=== PATIENT | female | born 1980 | race Caucasian/White ===

== ENCOUNTER → 2017-10-05 11:10 | Outpatient (CLI) | payer BC, SELFPAY ==
[2017-10-05 12:27] LABS: Hematocrit 34.5 % (37-47); Hemoglobin 11.7 g/dl (12.0-15.0); Mean Corp Hgb Conc 33.9 g/gl (32-36); Mean Corpuscular Hgb 32.2 pg (27.0-32.0); Mean Platelet Vol. 10.5 fl (6.2-12.0); Platelet Count 225 K/mm3 (150-450); RBC Distribution Width CV 12.7 % (11.6-14.6); RBC Distribution Width SD 43.9 fl (35.1-43.9); Red Blood Count 3.63 M/mm3 (4.2-5.4); White Blood Count 10.6 K/mm3 (4.4-11.0)
[2017-10-05 12:29] LABS: Scan Indicated on CBC? Y/N NO
[2017-10-05 12:30] LABS: Glucose Challenge Gest 1H 50g 148 mg/dL (70-140)
== END ==
PROVIDERS: Family Provider Family Medicine; PCP Family Medicine; Visit Provider Obstetrics & Gynecology
DX: Z34.83 Encounter for supervision of other normal pregnancy, third trimester (principal)
CPT/HCPCS: 82950; 85027

== ENCOUNTER → 2017-10-10 06:47 | Outpatient (CLI) | payer BC, SELFPAY ==
[2017-10-10 08:07] LABS: Glucose GTT-Gestation. Fasting 77 mg/dL (<105)
[2017-10-10 09:07] LABS: Glucose GTT-Gestational 1 Hr 118 mg/dL (<190)
[2017-10-10 11:12] LABS: Glucose GTT-Gestational 3 Hr 62 L (<145)
[2017-10-10 11:22] LABS: Glucose GTT-Gestational 2 Hr 71 mg/dL (<165)
== END ==
PROVIDERS: Family Provider Family Medicine; PCP Family Medicine; Visit Provider Obstetrics & Gynecology
DX: R73.02 Impaired glucose tolerance (oral) (principal)
CPT/HCPCS: 36415; 82951; 82952

== ENCOUNTER → 2017-11-24 14:07 | Outpatient (CLI) | payer BC, SELFPAY ==
[2017-11-24 17:33] LABS: Group B Strep DNA By PCR POSITIVE (Negative); Probe Check PASS
== END ==
PROVIDERS: Visit Provider Obstetrics & Gynecology
DX: Z34.83 Encounter for supervision of other normal pregnancy, third trimester (principal)
CPT/HCPCS: 87653

== ENCOUNTER 2017-12-27 02:08 | Inpatient (IN) | payer BC, SELFPAY ==
[2017-12-27 00:35] VITALS: BMI 36.1
[2017-12-27] MEDS: Lactated Ringers 1,000 ML 50 ML IV ×4 (02:30→10:16)
[2017-12-27 02:43] LABS: Hematocrit 37.6 % (37-47); Hemoglobin 13.1 g/dl (12.0-15.0); Mean Corp Hgb Conc 34.8 g/gl (32-36); Mean Corpuscular Hgb 32.1 pg (27.0-32.0); Mean Corpuscular Volume 92.2 fL (81-99); Mean Platelet Vol. 11.1 fl (6.2-12.0); Platelet Count 222 K/mm3 (150-450); RBC Distribution Width SD 43.5 fl (35.1-43.9); Red Blood Count 4.08 M/mm3 (4.2-5.4); Scan Indicated on CBC? Y/N NO; White Blood Count 14.1 K/mm3 (4.4-11.0)
[2017-12-27] MEDS: Clindamycin 900 MG/50 ML BAG 75 MG IV ×2 (03:09→10:54)
[2017-12-27] MEDS: Mag Hydrox/Al Hydrox/Simeth 30 ML UDC PO (03:31)
[2017-12-27] MEDS: fentaNYL-bupivacaine (epidural) 100 ML BAG EPIDURAL ×2 (03:35→07:20)
[2017-12-27] MEDS: Ondansetron 4 MG/2 ML Vial IV (04:25)
[2017-12-27] MEDS: Oxytocin 30 units/NS 500 ml 30 UNITS/500 ML IV.SOLN 334 UNITS IV (11:25)
[2017-12-27] MEDS: Methylergonovine 0.2 MG/ML Ampul IM (11:30)
--- NOTE | 2017-12-27 11:36 | PCM.NY.DEL ---
Delivery Attendance Service Date: 12/27/17 Service Time: 11:24 Asked to attend delivery by: OB, Nursing Reason for attendance: Meconium Assessment: - - Term Plan: Return to Mother - Course of Delivery Was resuscitation required: No Interventions at Delivery: Bulb Suction - Physical Exam Apgars/Vital Signs/Weight: Weight: 104.8 kg General: Alert, Active, Strong cry Head: Normocephalic Lungs: Clear to auscultation, No retractions Cardiovascular: Regular rate and rhythm Genitalia, Male: Penis normal Skin: Normal color
[2017-12-27] MEDS: Oxytocin 30 units/NS 500 ml 30 UNITS/500 ML IV.SOLN 167 UNITS IV (11:55)
--- NOTE | 2017-12-27 12:46 | PCM.OB.VAG ---
Vaginal Delivery Maternal Presentation: Active Labor 40 3/7 wk EGA labor. Medical Reason for Induction: Compromise: list: Amniotic Membrane Rupture Type: Artificial Amniotic Fluid Description: Moderate meconium Final GEOFF: 12/24/17 Gestational age: 40 Weeks and 3 Days doctor who attended delivery (if requested by OB): Ander Castano Date of Procedure: 12/27/17 Pre-Operative Diagnosis: 40 3/7 wk Post-Operative Diagnosis: same Surgery/ Procedure Performed: Spontaneous Vaginal Delivery Type of Anesthesia: Epidural Description of Procedure: Epidural in place. Hopper catheter in place. IUPC and scalp lead in place of a moran viable male over intact perineum. Head delivered JOON. No nuchal cord. shoulders delivered easily with R hand at chin. Baby to maternal abdomen with spontaneous cry. Dr Castano present for delivery due to meconium stained fluid. Delayed cord clamping, then cut. Ap 8/9 PP exam: 1st posterior vaginal laceration noted , no repair required. No other lacerations. Placenta delivered by spont expulsion, expression. 3V cord, normal appearing intact with trailing membranes EGL 250 cc pt and infant tolerated delivery well. To recovery , stable condition. Ray Saumya counts correct times two. Presentation: Vertex, JOON Placental Delivery Description: Spontaneous, Expressed Placenta Disposition: [facility] Cord Vessel Description: 3 Vessels Nuchal Cord Compression: Without compression Cord Entanglement: None Drain: Hopper to straight drain Estimated Blood Loss: 250 A gender: Male (1 minute): 8 (5 minute): 9 Episiotomy Description: None Laceration: Midline, Vaginal Extension/lac - hemostatic, no repair required, 1st degree Medications given after delivery: IV Pitocin Complications: None
--- NOTE | 2017-12-27 12:58 | PCM.DCVAG ---
Discharge Diet: No Restrictions Discharge Activity: May Shower, May Take a Tub Bath May resume sexual activity in: 4-6 weeks Additional Activity Instructions:: Nothing in the vagina for 4-6 weeks. You may return to work/school in 6 weeks. Additional Instructions: If you experience any of the following, contact your healthcare provider. Bleeding that soaks a pad every hour for 2 hours Fever 100.4 or higher Unrelieved abdominal pain Problems urinating (including inability to urinate or burning while urinating). Visual changes Severe headache Flu-like symptoms Pain or redness in one of both of your breasts Pain, warmth, tenderness or swelling in your legs, especially the calf area Frequent nausea and vomiting Symptoms of depression or anxiety If you experience any of the following, call 911 or go to the nearest Emergency Room. Chest pain Problems breathing Seizure activity Partial or complete paralysis of a body part, slurred speech, weakness or drooping of the face, or a sudden inability to walk or hold your balance Allergies/Adverse Reactions: Allergies Penicillins Allergy (Verified 12/27/17 00:26) Rash Medications to take at Discharge Vits [Prenatabs FA] 1 tablet PO DAILY 12/27/17 Please Follow Up With: Juliette Bright MD - [phone] When: Call to make an appointment with your doctor in 6 weeks. Primary Care Physician: Rasta Mario MD [Primary Care Provider] - Proposed Discharge Date: 12/29/17
--- NOTE | 2017-12-27 13:00 | DCINST_ITS ---
Discharge Diet: No Restrictions Discharge Activity: May Shower, May Take a Tub Bath May resume sexual activity in: 4-6 weeks Additional Activity Instructions:: Nothing in the vagina for 4-6 weeks. You may return to work/school in 6 weeks. Additional Instructions: If you experience any of the following, contact your healthcare provider. * Bleeding that soaks a pad every hour for 2 hours * Fever 100.4 or higher * Unrelieved abdominal pain * Problems urinating (including inability to urinate or burning while urinating) . * Visual changes * Severe headache * Flu-like symptoms * Pain or redness in one of both of your breasts * Pain, warmth, tenderness or swelling in your legs, especially the calf area * Frequent nausea and vomiting * Symptoms of depression or anxiety If you experience any of the following, call 911 or go to the nearest Emergency Room. * Chest pain * Problems breathing * Seizure activity * Partial or complete paralysis of a body part, slurred speech, weakness or drooping of the face, or a sudden inability to walk or hold your balance Allergies/Adverse Reactions: Allergies Penicillins Allergy (Verified 12/27/17 00:26) Rash Medications to take at Discharge Vits [Prenatabs FA] 1 tablet PO DAILY 12/27/17 Please Follow Up With: Juliette Bright MD - [phone] When: Call to make an appointment with your doctor in 6 weeks. Primary Care Physician: Rasta Mario MD [Primary Care Provider] - Proposed Discharge Date: 12/29/17
[2017-12-27] MEDS: Acetaminophen 500 MG Tablet 1000 MG PO (14:38)
[2017-12-27 16:00] VITALS: BP 117/67; PULSE 72; RESP 16; TEMP 36.8
[2017-12-27] MEDS: Ibuprofen 600 MG Tablet PO (17:11)
[2017-12-27 19:40] VITALS: BP 120/62; PULSE 67; RESP 16; TEMP 36.6; O2SAT 98
[2017-12-28] VITALS: BP 119/60; PULSE 65; RESP 16; TEMP 36.3
[2017-12-28] MEDS: Ibuprofen 600 MG Tablet PO (05:07)
[2017-12-28 05:13] VITALS: BP 111/72; PULSE 57; RESP 16; TEMP 36.8
[2017-12-28] MEDS: Acetaminophen 500 MG Tablet 1000 MG PO (06:52)
[2017-12-28 07:32] VITALS: BP 108/71; PULSE 64; RESP 18; TEMP 37
--- NOTE | 2017-12-28 08:32 | PCM.PN.OB ---
Subjective: PPD#1 doing OK. Some cramping in lower abdomen and taking tylenol, ibuprofen prn for this and using K pad. Pumping with pump at bedside. Baby transported to [facility] yesterday d/t meconium aspiration syndrome. Pt states he is intubated and medicated now for his lungs. Would like to go home today. RX for pain requested and will send to local pharmacy - Physical Exam General: Alert, Oriented x3, Cooperative, No apparent distress HEENT: Atraumatic Neck: Supple Abdomen: Soft, Non Tender - K pad over lower abdomen. Fundus firm NT at umbilicus Psych/Mental Status: Normal Affect Vital Signs Temp Pulse Resp BP Pulse Ox 98.3 F 57 L 16 111/72 98 12/28/17 05:13 12/28/17 05:13 12/28/17 05:13 12/28/17 05:13 12/27/17 19:40 Oxygen Delivery Method Room Air Weight: 104.8 kg Body Mass Index (BMI) 36.1 Intake and Output for Last 24 Hours 12/26/17 12/27/17 12/28/17 23:59 23:59 23:59 Intake Total 2618 / 2618 Output Total 700 / 700 400 / 400 Balance 8 / 1917 -400 / -400 Medical Necessity - Tobacco Use Smoking Status: Former smoker Assessment/Plan PPD#1 Stable pp. dischg home today. Baby at [facility] for Meconcium Aspiration. RTO in 6 wk to office for pp check, prn sooner.
--- NOTE | 2017-12-28 08:35 | PN.OBGYN_ITS ---
Subjective: PPD#1 doing OK. Some cramping in lower abdomen and taking tylenol, ibuprofen prn for this and using K pad. Pumping with pump at bedside. Baby transported to [facility] yesterday d/t meconium aspiration syndrome. Pt states he is intubated and medicated now for his lungs. Would like to go home today. RX for pain requested and will send to local pharmacy - Physical Exam General: Alert, Oriented x3, Cooperative, No apparent distress HEENT: Atraumatic Neck: Supple Abdomen: Soft, Non Tender - K pad over lower abdomen. Fundus firm NT at umbilicus Psych/Mental Status: Normal Affect Vital Signs Temp Pulse Resp BP Pulse Ox 98.3 F 57 L 16 111/72 98 12/28/17 05:13 12/28/17 05:13 12/28/17 05:13 12/28/17 05:13 12/27/17 19:40 Oxygen Delivery Method Room Air Weight: 104.8 kg Body Mass Index (BMI) 36.1 Intake and Output for Last 24 Hours 12/26/17 12/27/17 12/28/17 23:59 23:59 23:59 Intake Total 2618 / 2618 Output Total 700 / 700 400 / 400 Balance 8 / 1917 -400 / -400 Medical Necessity - Tobacco Use Smoking Status: Former smoker Assessment/Plan PPD#1 Stable pp. dischg home today. Baby at [facility] for Meconcium Aspiration. RTO in 6 wk to office for pp check, prn sooner.
[2017-12-28 09:06] VITALS: BP 108/71; PULSE 64; RESP 18; TEMP 37
--- NOTE | 2017-12-28 09:30 | CASEMGMT ---
Social Work Brief Assessment Labor and Delivery Unit Date of Referral/Notification: 12/28/2017 Time of Referral: 829 Referred By: nursing staff Reason for Referral: emotional support Date of Intervention: 12/28/2017 Time of Intervention: 929 Informant: Medical record and mother of baby (MOB) History: MOB is Janet Love, age 37, to father of baby (FOB) [place]. MOB reports has been with FOB for 13 years. was unexpected, but also wanted and accepted. MOB is G1, P0 to 1 after delivery of , Cornel. born with Apgars of 8 and 9. Infant, soon after , was transferred to [facility] for some respiratory distress issues. MOB reports to have stable housing, to live with FOB, and no safety issues in the home. MOB reports to have needed supplies for baby, to have transportation, and to have adequate support from family and friends in the area. MOB reports primary practical supports would be FOB and MOBs mother, and then emotional support FOB. MOB denies any mental health history, though care record does indicate MOB with some anxiety about . MOB reports worry was mostly about the baby, and concern for the baby. MOB reports perception that overall, this , and even the delivery were both very easy experiences, no major stressors or life changes other than getting ready for parenthood after so long together as a couple without children. No reports of any drug and alcohol issues. MOB and FOB are both college educated, no learning or comprehension issues, and both gainfully employed. Assessment: MOB held good eye contact, affect constricted, teary eyed intermittently, anxious mood as evidenced by expressed worry/concern about baby. MOB able to stay focused on conversation at hand, speech and motor activity within normal limits. MOB admits day of was difficult, that MOB did get to do about an hour of skin to skin with the baby, before nursing realized something was not right with the babys responses. MOB reports did go into the [facility] to see the baby, but this was hard and discussed with this film writer was parts that were the hardest for MOB. MOB admits that at the time was not really taking in and retaining what the doctor was saying, as this was a stressful time for MOB. MOB also reports it was hard when the decision was made to transfer the baby to main [facility] at [place], though MOB states knowledge that baby is where needs to be and that FOB has been with baby since transfer. MOB reports FOB has been giving MOB regular updates. This film writer listened to MOBs and experience from MOBs perspective, normalizing MOBs thoughts and feelings experienced. Supportive listening offered. Educated MOB to depression and anxiety, risk factors for such, and importance of MOB taking care of self in the period. Reinforced importance of letting others know if symptoms arise, and seeking out support. Discussed that right now this is a stressful time, may have ups and downs in thoughts and emotions, so important for self-care even during this time. Encouraged MOB to write down questions that has for the babys medical team, to help MOB with keeping focused and getting questions answered. MOB voiced appreciation for social service worker talking with MOB today. As far as being prepared for baby, MOB reports will have support at home going and to have essential baby supplies at home already. Intervention: Emotional support and supportive listening offered. Provided MOB with packet on depression, signs/symptoms, and common facts about depression anxiety, local resources for support, and online resources for support. Provided a handout on Help Me grow, educating to this services and let MOB know that the social service worker at [place] may talk with MOB and FOB further. Plan: MOB discharging today, with plan for MOBs mother to transport MOB to [place] to see the baby. MOB agreeable to have a face to face (computer based) phone conference with Radha Summers if MOB is still in the hospital at time of planned conference time for this baby. No further needs requested or indicated. -JOHANNA Mason, TECHNICAL CONSULTANT
--- NOTE | 2017-12-28 10:49 | NURSING ---
Pt talked with Jocelyn, director social service, since pt admitted to being shocked from seeing in that condition after delivery. Pt continues to have difficulty focussing on teaching and filling out infant's certificate. RN reinforced this am that [employer] Booklet has all the teaching that we go over here at the hospital. Pt was agreeable to facetime during 's care at 1030 this am but then FOB called crying and distressed prior to that that infant's condition had worsened and pt would like to leave immediately with her mother to drive to [facility] to be with and FOB. Belongings packed quickly, written/verbal d/c instructions given by RN, certificate reviewed prior to d/c but complimentary footprint certificate not given at this time. Pt transported via w/c and all belongings transported to ride with pt's mother. No further questions noted prior to d/c but encouraged pt to keep our unit updated on 's progress.
--- NOTE | 2017-12-30 13:48 | CASEMGMT ---
Social Work Labor and Delivery Unit Handoff report to social science research assistant Jessica Whiteside at [facility] (where was transferred to). No other services requested or indicated. -DALY Mason, PEDIATRIC DENTAL ASSISTANT
== END 2017-12-28 10:16 | disposition home or self-care (01) | DRG 774 ==
LOC: WPOUT 02:09
PROVIDERS: Admitting Provider Obstetrics & Gynecology; Family Provider Family Medicine; PCP Family Medicine; Visit Provider Obstetrics & Gynecology
DX: O71.4 Obstetric high vaginal laceration alone (principal); O98.82 Other maternal infectious and parasitic diseases complicating childbirth; O77.0 Labor and delivery complicated by meconium in amniotic fluid; B95.1 Streptococcus, group B, as the cause of diseases classified elsewhere; Z3A.40 40 weeks gestation of pregnancy; Z37.0 Single live birth; Z87.891 Personal history of nicotine dependence
CPT/HCPCS: 59025; 59050; 85027; 86850; 86900; 99218; J7120; G0378; J2405

== ENCOUNTER 2020-05-13 11:08 | Emergency (ER) | payer BC, SELFPAY ==
[2019-07-12 08:20] VITALS: BMI 36.1
[2020-05-13 11:09] VITALS: BP 146/85; PULSE 69; RESP 20; TEMP 36.2; O2SAT 99; BMI 40.8
--- NOTE | 2020-05-13 11:30 | EKG12_ITS ---
Test Reason : CP Blood Pressure : / mmHG Vent. Rate : 060 BPM Atrial Rate : 060 BPM P-R Int : 168 ms QRS Dur : 084 ms QT Int : 426 ms P-R-T Axes : -06 021 038 degrees QTc Int : 426 ms Normal sinus rhythm Normal ECG Confirmed by YONAS DÍAZ, JACQUELIN ([id number]), editor department DESTINEY SKINNER ([id number]) on 05/14/2020 9:38:56 AM Referred By: Confirmed By:JACQUELIN BRANHAM MD
--- NOTE | 2020-05-13 11:32 | ED.DCSUM_ITS ---
- ER Visit Summary Date of Service: 05/13/20 Chief Complaint: Chest pain History of Present Illness: The patient is a 39 F who presents with chest pain that began today while she was at work. Patient states the pain began as a sharp pain but is now a dull ache. Patient states the pain is over the lower vasquez bsternal and epigastric area. Patient states nothing makes it better or worse. Patient admits to some lightheadedness. Patient denies any nausea or vomiting. Patient denies any diaphoresis. Patient denies any shortness of breath or cough. Patient denies any fever or palpitations. Physical Examination: Vital signs are stable. Patient is afebrile. Patient is in no acute distress. Oral mucosa is pink and moist. Neck is supple. Trachea is midline. There is no JVD noted. Heart was regular rate and rhythm. Lungs are clear and equal bilaterally. Abdomen is soft. Bowel sounds are normal. There is no tenderness. There is no rebound or guarding noted. Skin is warm dry. Cranial nerves II through XII are intact. There are no focal motor or sensory deficits noted. Extremities are intact. There is no calf tenderness or edema. Test Results: EKG shows a normal sinus rhythm with a rate of 60. There are no acute ST or T wave changes. CBC and basic metabolic profile were within normal limits. Troponin was normal. Portable chest x-ray was obtained. There is no acute cardiopulmonary process. This was interpreted by the radiologist and reviewed by myself. Emergency Department Course and Treatment: Patient was given baby aspirin here. Patient was given 1 sublingual nitroglycerin tablet with no change in her pain. Patient was given a GI cocktail. Patient has a HEART score of 1. Patient was advised that this is low risk for acute cardiac event. Patient was instructed to follow-up with her primary care physician in 3 to 5 days. Patient understood and was agreeable with the plan. All questions were answered. Disposition: Discharge home Impression: 1. Chest pain of uncertain etiology This note was generated with [employer] dictation software. It may contain incorrect words, spelling, and punctuation that were not noted in review of the chart prior to signing ED Disposition - Plan for ED Patient: Disposition: Home or Assisted Living Diagnosis: Chest pain of uncertain etiology Instructions: ED Chest Pain Atypical Unkn Cause Referrals: Rasta Mario MD [Primary Care Provider] - 3-5 Days
[2020-05-13] MEDS: Aspirin 81 MG TAB.CHEW 324 MG PO (11:38)
--- NOTE | 2020-05-13 11:45 | RAD_ITS ---
STUDY: X-RAY CHEST REASON FOR EXAM: Female, 39 years old. Chest pain TECHNIQUE: AP upright portable view. COMPARISON: None. FINDINGS: The lungs are clear and expanded. There is no demonstrated pleural abnormality. Normal size heart. Normal mediastinum and mikki. Normal visualized pulmonary arteries. Normal visualized aortic arch and descending thoracic aorta. Normal visualized thoracic spine. Normal visualized ribs, clavicles, and shoulders. There is no demonstrated abnormality of the visualized soft tissue structures of the upper abdomen. RAD/Chest 1 View (Portable) IMPRESSION: Normal x-ray examination of the chest. Electronically Signed: Emilio Woods MD at 12:13 EDT , Service support ,
[2020-05-13 11:46] VITALS: BP 127/79; PULSE 64
[2020-05-13] MEDS: Nitroglycerin SL (ED/IMG/CATH) 0.4 MG TABLET SUBLINGUAL (11:46)
[2020-05-13 11:50] LABS: Absolute Lymphocyte Count 3.26 X10^3/uL (0.83-4.51); Absolute Neutrophil Count 5.4 X10^3/uL (2.0-7.7); Basophil# 0.08 X10^3/uL; Basophil% 0.8 % (0-1); Eosinophil# 0.19 X10^3/uL; Lymphocyte # 3.26 X10^3/ul (4.0); Lymphocyte % 34.4 % (19-41); Mean Corp Hgb Conc 32.5 g/dL (32-36); Mean Corpuscular Hgb 30.4 pg (27.0-32.0); Mean Corpuscular Volume 93.5 fL (81-99); Mean Platelet Vol. 10.1 fl (6.2-12.0); Monocyte# 0.56 X10^3/uL; Monocyte% 5.9 % (0-10); NRBC Flagged by Analyzer 0 % (0-5); Neutrophil # 5.36 X10^3/uL (2.7-7.7); Neutrophil % 56.6 % (47-70); Platelet Count 354 K/mm3 (150-450); RBC Distribution Width CV 12.2 % (11.6-14.6); RBC Distribution Width SD 41.6 fl (35.1-43.9); Red Blood Count 4.28 M/mm3 (4.2-5.4); White Blood Count 9.5 K/mm3 (4.4-11.0)
[2020-05-13 12:02] LABS: Anion Gap 5 (5-15); BUN 10 mg/dL (7-18); BUN/Creat Ratio 9.3 RATIO (10-20); Calcium,Total 8.8 mg/dL (8.5-10.1); Chloride 107 mmol/L (98-107); Creatinine, Serum 1.08 mg/dL (0.55-1.02); EST Glomerular Filtration Rate 60 mL/min (>60); Est Glom Filt Rate - Afr Amer 72 mL/min (>60); Estimated Creatinine Clearance 67.34 ml/min; Glucose 88 mg/dL (74-106); Potassium 3.3 mmol/L (3.5-5.1); Sodium Level 140 mmol/L (136-145)
[2020-05-13] MEDS: Mag Hydrox/Al Hydrox/Simeth 30 ML UDC PO (12:41)
[2020-05-13 12:44] VITALS: BP 120/82; PULSE 58; RESP 14; O2SAT 97
== END 2020-05-13 12:44 | disposition home or self-care (01) ==
PROVIDERS: Emergency Provider Emergency Medicine; PCP Family Medicine
DX: R07.9 Chest pain, unspecified (principal)
CPT/HCPCS: 71045; 80048; 84484; 85025; 93005; 99285; A4216

== ENCOUNTER → 2020-06-02 16:00 | Outpatient (CLI) | payer BC, SELFPAY ==
[2020-06-02 15:46] VITALS: BMI 40.7
[2020-06-06 15:26] LABS: HPV APTIMA, High Risk Negative (Negative)
== END ==
PROVIDERS: PCP Family Medicine; Referring Provider Obstetrics & Gynecology; Visit Provider Obstetrics & Gynecology
DX: Z12.4 Encounter for screening for malignant neoplasm of cervix (principal)
CPT/HCPCS: 87624; 88175; G0145

== ENCOUNTER 2021-08-13 16:18 | Outpatient (CLI) | payer BC, SELFPAY ==
--- NOTE | 2021-08-13 16:20 | BI_ITS ---
MAMMOGRAPHY - BILATERAL SCREENING REASON FOR EXAM: Female, 40 years old. Routine annual screening examination. PERTINENT HISTORY: Aunt with breast cancer. Remote bilateral breast reduction surgery. TECHNIQUE: Digital bilateral breast maria luisa (3D mammographic acquisition) in the CC and MLO projections. 2-D mediolateral oblique (MLO) and craniocaudad (CC) views of both breasts were obtained. CAD: Full Field Digital Mammography with Computer Added Detection was performed. COMPARISON: Comparison is made with prior examination dated 09/29/2015 and 04/09/2014. FINDINGS: Breast Composition: There are scattered areas of fibroglandular density. There are no dominant masses or suspicious calcifications. Stable postsurgical changes from prior breast reduction surgery. Stable calcified 8.6 mm nodule in the upper medial anterior portion of the right breast No other significant abnormalities are identified. There has been no significant change since the prior study. BI/SCRN MAMM (CAD)W/MARIA LUISA BILAT IMPRESSION: Stable bilateral screening mammogram. Yearly follow-up mammogram recommended. (A) ASSESSMENT CATEGORY: BIRADS Category 2: Benign. A letter regarding these results will be sent to the patient by the facility within 30 days. Approximately 10% of breast cancers are not detected by mammography. A normal mammogram should not delay biopsy of a clinically suspicious abnormality. [id number] Electronically Signed: Iron Jacob MD at 8:08 EST , Service support ,
== END 2021-08-13 23:59 | disposition short-term general hospital (02) ==
LOC: OPBI 16:19
PROVIDERS: PCP Family Medicine; Visit Provider Obstetrics & Gynecology
DX: Z12.31 Encounter for screening mammogram for malignant neoplasm of breast (principal)
CPT/HCPCS: 77063; 77067

== ENCOUNTER → 2022-08-24 | Outpatient (CLI) | payer BC, SELFPAY | END | disposition home or self-care (01) | LOC: LABSPEC 10:01 | PROVIDERS: PCP Family Medicine; Visit Provider Family Medicine | DX: R19.7 Diarrhea, unspecified (principal) | CPT/HCPCS: 87493; 87506 ==

== ENCOUNTER → 2022-08-31 | Outpatient (CLI) | payer BC, SELFPAY ==
[2022-08-31 12:21] LABS: Absolute Lymphocyte Count 2.15 X10^3/uL (0.83-4.51); Absolute Neutrophil Count 4.1 X10^3/uL (2.0-7.7); Basophil# 0.09 X10^3/uL; Basophil% 1.3 % (0-1); Eosinophil# 0.17 X10^3/uL; Eosinophils% 2.4 % (0-5); Hematocrit 38.4 % (37-47); Lymphocyte # 2.15 X10^3/ul (0.83-4.51); Lymphocyte % 30.9 % (19-41); Mean Corp Hgb Conc 33.9 g/dL (32-36); Mean Corpuscular Hgb 31.2 pg (27.0-32.0); Mean Corpuscular Volume 92.1 fL (81-99); Mean Platelet Vol. 10.3 fl (6.2-12.0); Monocyte# 0.43 X10^3/uL; Monocyte% 6.2 % (0-10); NRBC Flagged by Analyzer 0 % (0-5); Neutrophil % 58.9 % (47-70); Platelet Count 336 K/mm3 (150-450); RBC Distribution Width CV 12.3 % (11.6-14.6); RBC Distribution Width SD 41.2 fl (35.1-43.9); Red Blood Count 4.17 M/mm3 (4.2-5.4)
[2022-08-31 12:32] LABS: Erythrocyte Sedimentation Rate 5 mm/hr (0-30)
[2022-08-31 13:07] LABS: ALB/GLOB Ratio 1.1 RATIO (0.9-2.4); AST(SGOT) 42 U/L (15-37); Alanine Aminotransfer ALT/SGPT 52 U/L (13-56); Albumin, Serum 4.2 g/dL (3.2-5.0); Alkaline Phosphatase 59 U/L (45-117); Anion Gap 7 (5-15); BUN 9 mg/dL (7-18); BUN/Creat Ratio 7.8 RATIO (10-20); CRP < 2.90 mg/L (0.0-3.0); Calcium,Total 9.1 mg/dL (8.5-10.1); Chloride 107 mmol/L (98-107); Creatinine, Serum 1.15 mg/dL (0.55-1.02); EST Glomerular Filtration Rate 55 mL/min (>60); Est Glom Filt Rate - Afr Amer 66 mL/min (>60); Free T3 2.4 pg/mL (2.18-3.98); Globulin 3.9 g/dL (2.2-4.2); Glucose 91 mg/dL (74-106); LDH 223 U/L (84-246); Potassium 3.6 mmol/L (3.5-5.1); Protein, Total 8.1 g/dL (6.4-8.2); Sodium Level 140 mmol/L (136-145); T4 Total, Thyroxin 8.7 ug/dL (4.8-13.9)
[2022-09-01 16:09] LABS: Endomysial Antibody IgA Negative (Negative)
[2022-09-01 16:26] LABS: Immunoglobulin A 241 mg/dL (87-352); t-Transglutaminase IgA 2 U/mL (0-3)
[2022-09-03 15:08] LABS: Albumin 3.7 g/dL (2.9-4.4); Alpha-1-Globulins 0.3 g/dL (0.0-0.4); Alpha-2-Globulins 0.7 g/dL (0.4-1.0); Cytoplasmic Ab (C-ANCA) <1:20 titer (Neg:<1:20); Gamma Globulin 1.4 g/dL (0.4-1.8); Immunoglobulin A 259 mg/dL (87-352); Immunoglobulin E < 2 IU/mL (6-495); Immunoglobulin G 1309 mg/dL (586-1602); Immunoglobulin M 128 mg/dL (26-217); PROEL- TOTAL PROTEIN 7.3 g/dL (6.0-8.5)
[2022-09-03 16:14] LABS: Perinuclear Ab (P-ANCA) <1:20 titer (Neg:<1:20)
[2022-09-03 19:07] LABS: Anti-Centromere B Ab <0.2 AI (0.0-0.9); Anti-Chromatin <0.2 AI (0.0-0.9); Anti-Jo <0.2 AI (0.0-0.9); Anti-Scleroderma-70 AB <0.2 AI (0.0-0.9); Beef <0.10 kU/L (Class 0); Corn <0.10 kU/L (Class 0); Egg, Whole <0.10 kU/L (Class 0); Milk (Cow) <0.10 kU/L (Class 0); Peanut <0.10 kU/L (Class 0); Pork <0.10 kU/L (Class 0); RNP Ab <0.2 AI (0.0-0.9); SJOGREN'S Anti-SS-A test < 0.2 AI (0.0-0.9); SJOGREN'S Anti-SS-B test < 0.2 AI (0.0-0.9); Smith Ab <0.2 AI (0.0-0.9); Soybean <0.10 kU/L (Class 0); Wheat <0.10 kU/L (Class 0)
[2022-09-04 14:00] LABS: Anti-dsDNA Ab <1 IU/mL (0-9); Chocolate <0.10 kU/L (Class 0)
== END | disposition home or self-care (01) ==
PROVIDERS: PCP Family Medicine; Referring Provider Internal Medicine Gastroenterology; Visit Provider Internal Medicine Gastroenterology
DX: R19.7 Diarrhea, unspecified (principal)
CPT/HCPCS: 36415; 80053; 82784; 82785; 83516; 83615; 84165; 84436; 84443; 84481; 85025; 85652; 86003; 86005; 86140; 86225; 86235; 86255; 86256; 86334

== ENCOUNTER → 2022-09-06 | Outpatient (CLI) | payer BC, SELFPAY ==
[2022-09-08 16:49] LABS: Calprotectin, Stool <16 ug/g (0-120)
[2022-09-10 21:25] LABS: Pancreatic Elastase, Fecal 421 (>200)
== END | disposition home or self-care (01) ==
LOC: LABSPEC 10:11
PROVIDERS: PCP Family Medicine; Visit Provider Internal Medicine Gastroenterology
DX: R19.7 Diarrhea, unspecified (principal)
CPT/HCPCS: 82274; 82653; 83630; 83993; 87177; 87209; 87329

== ENCOUNTER → 2022-09-06 | Outpatient (CLI) | payer BC, SELFPAY ==
--- NOTE | 2022-09-06 10:16 | NM_ITS ---
CLINICAL: 41-year-old female with history of chronic diarrhea. SEMI-SOLID PHASE 99m Tc SULFUR COLLOID GASTRIC EMPTYING STUDY COMPARISON: None available FINDINGS: The patient was administered 1.1 mCi of 99m Tc sulfur colloid mixed with oatmeal and consumed per os. Image acquisitions in the anterior-posterior projections were obtained for 60 minutes. There is prompt visualization of the stomach. There is no gastroesophageal reflux identified. The T ? raw data emptying was calculated to be 21.55 minutes, (Normal: 12-56 minutes). NM/Gastric Emptying Study IMPRESSION: 1. NORMAL 99m Tc sulfur colloid semi-solid phase (oatmeal) gastric emptying imaging examination. A. There is normal and preserved semi-solid phase gastric emptying compared to normal controls. (Massiel et al, J Nucl Med Tech 38: 186, 2010). Electronically Signed: John Jones, at 21:02 EST ,
== END | disposition home or self-care (01) ==
LOC: NM 10:15
PROVIDERS: PCP Family Medicine; Visit Provider Internal Medicine Gastroenterology
DX: R19.7 Diarrhea, unspecified (principal)
CPT/HCPCS: 78264; A9541

== ENCOUNTER → 2022-09-07 | Outpatient (CLI) | payer BC, SELFPAY ==
--- NOTE | 2022-09-07 16:18 | BI_ITS ---
MAMMOGRAPHY - BILATERAL SCREENING REASON FOR EXAM: Female, 41 years old. Routine annual screening examination. PERTINENT HISTORY: Aunt with breast cancer. History of prior bilateral breast reduction surgery. TECHNIQUE: Digital bilateral breast maria luisa (3D mammographic acquisition) in the CC and MLO projections. 2-D mediolateral oblique (MLO) and craniocaudad (CC) views of both breasts were obtained. CAD: Full Field Digital Mammography with Computer Added Detection was performed. COMPARISON: Comparison is made with prior study dated 08/13/2021 and 10/28/2015. FINDINGS: Breast Composition: There are scattered areas of fibroglandular density. There are no dominant masses or suspicious calcifications. Stable postsurgical changes from prior bilateral breast reduction surgery. Stable calcified nodular densities in the upper slightly medial aspect of the right breast. Stable benign appearing bilateral axillary lymph nodes. No other significant abnormalities are identified. There has been no significant change since the prior study. BI/SCRN MAMM (CAD)W/MARIA LUISA BILAT IMPRESSION: Stable bilateral screening mammogram. Yearly follow-up mammogram recommended. (A) ASSESSMENT CATEGORY: BIRADS Category 2: Benign. A letter regarding these results will be sent to the patient by the facility within 30 days. Approximately 10% of breast cancers are not detected by mammography. A normal mammogram should not delay biopsy of a clinically suspicious abnormality. [id number] Electronically Signed: Iron Jacob MD at 8:47 EST ,
== END | disposition home or self-care (01) ==
LOC: OPBI 09-08 07:44
PROVIDERS: PCP Family Medicine; Visit Provider Obstetrics & Gynecology
DX: Z12.31 Encounter for screening mammogram for malignant neoplasm of breast (principal)
CPT/HCPCS: 77063; 77067

== ENCOUNTER → 2023-10-31 | Outpatient (CLI) | payer BC, SELFPAY ==
--- NOTE | 2023-10-31 15:46 | BI_ITS ---
MAMMOGRAPHY - BILATERAL SCREENING REASON FOR EXAM: Female, 42 years old. Routine annual screening examination. PERTINENT HISTORY: Aunt with breast cancer. History of prior bilateral breast reduction surgery. TECHNIQUE: Digital bilateral breast maria luisa (3D mammographic acquisition) in the CC and MLO projections. 2-D mediolateral oblique (MLO) and craniocaudad (CC) views of both breasts were obtained. CAD: Full Field Digital Mammography with Computer Added Detection was performed. COMPARISON: Comparison is made with prior study dated September 07, 2022 and August 13, 2021 FINDINGS: Breast Composition: There are scattered areas of fibroglandular density. There are no dominant masses or suspicious calcifications. Stable postsurgical changes from prior bilateral breast reduction surgery are seen. Stable calcified nodular densities in the upper slightly medial aspect of the right breast. These most likely again postoperative changes. Stable small bilateral benign-appearing axillary lymph nodes. No other significant abnormalities are identified. There has been no significant change since the prior study. BI/SCRN MAMM (CAD)W/MARIA LUISA BILAT IMPRESSION: Stable bilateral screening mammogram. Yearly follow-up mammogram recommended. (A) ASSESSMENT CATEGORY: BIRADS Category 2: Benign. A letter regarding these results will be sent to the patient by the facility within 30 days. Approximately 10% of breast cancers are not detected by mammography. A normal mammogram should not delay biopsy of a clinically suspicious abnormality. [id number] Electronically Signed: Iron Jacob MD at 16:41 EDT ,
== END | disposition home or self-care (01) ==
LOC: OPBI 15:46
PROVIDERS: PCP Family Medicine; Referring Provider Obstetrics & Gynecology; Visit Provider Obstetrics & Gynecology
DX: Z12.31 Encounter for screening mammogram for malignant neoplasm of breast (principal)
CPT/HCPCS: 77063; 77067

== ENCOUNTER → 2024-09-04 | Outpatient (CLI) | payer OTHER, SELFPAY ==
[2024-09-04 16:31] LABS: Absolute Neutrophil Count 4.9 X10^3/uL (2.0-7.7); Basophil# 0.08 X10^3/uL; Basophil% 0.9 % (0-1); Eosinophil# 0.27 X10^3/uL; Eosinophils% 3.1 % (0-5); Hematocrit 37.3 % (37-47); Hemoglobin 12.4 g/dL (12.0-15.0); Lymphocyte % 34.2 % (19-41); Mean Corp Hgb Conc 33.2 g/dL (32-36); Mean Corpuscular Hgb 30.4 pg (27.0-32.0); Mean Corpuscular Volume 91.4 fL (81-99); Mean Platelet Vol. 9.7 fl (6.2-12.0); Monocyte# 0.48 X10^3/uL; Monocyte% 5.5 % (0-10); NRBC Flagged by Analyzer 0 % (0-5); Neutrophil # 4.88 X10^3/uL (2.7-7.7); Neutrophil % 55.7 % (47-70); Platelet Count 403 K/mm3 (150-450); RBC Distribution Width CV 12.2 % (11.6-14.6); RBC Distribution Width SD 40.5 fl (35.1-43.9); Red Blood Count 4.08 M/mm3 (4.2-5.4); White Blood Count 8.8 K/mm3 (4.4-11.0)
[2024-09-04 16:53] LABS: Estradiol 132.6 pg/mL; Follicle Stimulating Hormone 5.8 mIU/mL
[2024-09-04 17:02] LABS: AST(SGOT) 21 U/L (15-37); Alanine Aminotransfer ALT/SGPT 28 U/L (13-56); Albumin, Serum 3.9 g/dL (3.2-5.0); Alkaline Phosphatase 62 U/L (45-117); Anion Gap 4 (5-15); BUN 14 mg/dL (7-18); BUN/Creat Ratio 12.6 RATIO (10-20); Calcium,Total 9.2 mg/dL (8.5-10.1); Chloride 105 mmol/L (98-107); Creatinine, Serum 1.11 mg/dL (0.55-1.02); EST Glomerular Filtration Rate 57 mL/min (>60); Est Glom Filt Rate - Afr Amer 68 mL/min (>60); Glucose 77 mg/dL (74-106); Potassium 3.4 mmol/L (3.5-5.1); Protein, Total 7.9 g/dL (6.4-8.2); Sodium Level 138 mmol/L (136-145)
[2024-09-07 12:08] LABS: Vitamin D 1,25-Dihydroxy 31.8 pg/mL (24.8-81.5)
[2024-09-11 14:08] LABS: HPV APTIMA, High Risk Negative (Negative)
== END | disposition home or self-care (01) ==
PROVIDERS: Nurse Practitioner Family; PCP Family Medicine; Referring Provider Obstetrics & Gynecology; Visit Provider Obstetrics & Gynecology
DX: N92.0 Excessive and frequent menstruation with regular cycle (principal); N92.6 Irregular menstruation, unspecified; Z13.21 Encounter for screening for nutritional disorder; Z13.1 Encounter for screening for diabetes mellitus; Z12.4 Encounter for screening for malignant neoplasm of cervix
CPT/HCPCS: 36415; 80053; 82652; 82670; 83001; 83036; 84443; 85025; 87624; 88175; G0145

== ENCOUNTER → 2024-11-01 | Outpatient (CLI) | payer OTHER, SELFPAY ==
--- NOTE | 2024-11-01 17:03 | BI_ITS ---
EXAM: SCRN MAMM (CAD)W/MARIA LUISA BILAT DATE: 11/01/2024 CLINICAL HISTORY: F, Age 43 y/o , SCREEN BREAST CANCER RISK ASSESSMENT: Has not been calculated. TECHNIQUE: Bilateral screening digital breast tomosynthesis with 2D and 3D images. Computer aided detection. COMPARISON: Prior exam(s) dated 10/31/2023 and 09/07/2022. FINDINGS: TISSUE DENSITY: The breast tissue is composed of scattered area of fibroglandular density. Bilateral Breast Mammographic Findings: No suspicious masses, suspicious clustered microcalcifications, architectural distortion or secondary sign of malignancy is identified in either breast. Benign-appearing round microcalcifications are seen in both breasts. Benign-appearing macrocalcifications are seen in the right breast. BI/SCRN MAMM (CAD)W/MARIA LUISA BILAT IMPRESSION: Right Breast: BIRADS 2 BENIGN FINDING. Left Breast: BIRADS 2 BENIGN FINDING. OVERALL FINAL ASSESSMENT: BIRADS 2 BENIGN FINDING RECOMMENDATION: Routine annual follow-up in 1 Year A letter with findings and recommendations will be mailed to the patient. Reading Location: [id number]
== END | disposition home or self-care (01) ==
PROVIDERS: PCP Family Medicine; Referring Provider Obstetrics & Gynecology; Visit Provider Obstetrics & Gynecology
DX: Z12.31 Encounter for screening mammogram for malignant neoplasm of breast (principal)
CPT/HCPCS: 77063; 77067